=== PATIENT | female | born 1985 | race African-American/Black ===

== ENCOUNTER 2017-02-24 09:52 | Emergency (ER) | payer OTHER ==
[2017-02-24] MEDS ORDERED: TOPROL XL (09:58)
[2017-02-24 10:46] LABS: BASOPHIL% 0.5 % (0-2.5); EOSINOPHIL# 0.1 X10e3 (0-0.7); EOSINOPHIL% 0.7 % (0.0-7.0); HEMATOCRIT 41.4 % (35.0-45.0); HEMOGLOBIN 14.3 gm/dL (12.0-16.0); LYMPHOCYTE# 1.5 X10e3 (1.0-3.5); LYMPHOCYTE% 14.1 % (17.0-45.0); MEAN CELL VOLUME 88.4 FL (83-96); MEAN CORPUSCULAR HEMOGLOBIN 30.6 PG (28-34); MEAN CORPUSCULAR HGB CONC 34.6 g/dL (30-36); MEAN PLATELET VOLUME 8.9 FL (6.5-11.5); MONOCYTE# 0.8 X10e3 (0-1.0); MONOCYTE% 7.7 % (3.0-12.0); NEUTROPHIL# 8.2 X10e3 (1.5-7.1); PLATELET COUNT 166 X10e3 (140-420); RED BLOOD COUNT 4.68 X10e (3.90-5.30); RED CELL DISTRIBUTION WIDTH 13.7 % (11.0-15.5); WHITE BLOOD COUNT 10.7 X10e3 (4.0-10.5)
[2017-02-24 10:52] LABS: DIFF IND NO
[2017-02-24 11:05] LABS: BUN/CREATININE RATIO 8.18; CALCIUM SERUM 8.6 mg/dL (8.4-10.2); CREATININE SERUM 1.1 mg/dL (0.6-1.4)
== END 2017-02-24 12:08 | disposition home or self-care (01) ==
LOC: SED 09:52
PROVIDERS: Emergency Medicine
DX: J02.0 Streptococcal pharyngitis (principal)
CPT/HCPCS: 36415; 80048; 84703; 85025; 87880; 96361; 96372; 96374; 96375; 99283; J0561; J1885; J2930

== ENCOUNTER 2017-03-25 20:27 | Emergency (ER) | payer OTHER ==
[~2017-03-25] VITALS: Ht 170.2 cm; Wt 82.5 kg
--- NOTE | ~2017-03-25 | CT2 ---
[facility] A Service [facility] RADIOLOGY TEXT RESULTS PATIENT: MÓNICA METCALF LOCATION: SED : [birth year] UNIT #: [id number] AGE: [address]: Nathaniel Figueroa MD SEX: F ORDER DR: [id number] [address] [address] [id number] E MR#: [id number] Acc #: [id number] NAME: MÓNICA METCALF : 1985 SEX: F STUDY DATE/TIME: 03/25/2017 22:28 UNIT: SED ROOM: STUDY DESCRIPTION: CT Abd and Pelv W Cont Attending Physician: Nathaniel Figueroa M.D. Ordering Physician: Nathaniel Figueroa M.D. Primary Care Physician: Monica Hurley A.P.R.N. MEDICAL IMAGING REPORT This report is preliminary unless electronic signature is present. EXAM CT abdomen and pelvis with contrast date 03/25/2017 HISTORY Generalized abdominal pain radiating to lower back. Generalized weakness. Symptoms have been present for a couple days. Hypertension. COMPARISON None. PROCEDURE 5 mm axial images from the lung bases to lesser trochanters after intravenous contrast administration. Enteric contrast was not administered. Sagittal and coronal reformatted images were obtained. This CT exam was performed with one or more of the following radiation dose reduction techniques: automatic exposure control, adjustment of mA and/or kV according to patient size, and iterative reconstruction. FINDINGS Abdomen findings: Lung bases are free of consolidation. The liver, gallbladder, spleen, pancreas, adrenals and kidneys are normal. The second through fourth duodenal segment appear to have generalized wall thickening and mucosal hyperenhancement, suggesting the possibility of active duodenitis. There is no evidence of high-grade obstruction. No free air or abscess or ulceration defect is identified. No evidence of high-grade bowel obstruction. There is a tiny umbilical hernia containing only fat. Appendix is normal. Pelvis findings: There is trace pelvic free fluid. The urinary bladder, uterus and rectum are within normal limits. [facility] A Service [facility] RADIOLOGY TEXT RESULTS PATIENT: MÓNICA METCALF LOCATION[place] [facility] [place] [birth year] UNIT #: [id number] AGE: [address]: Nathaniel Figueroa MD SEX: F ORDER DR: No acute osseous abnormalities identified. IMPRESSION 1. Findings suggestive of inflammation the second through fourth duodenal segments. Correlate for duodenitis type symptoms. 2. Trace pelvic free fluid is nonspecific, may be physiologic. 3. The appendix is normal. 4. Remainder of examination is within normal limits. Dictated by... Joyce Del Rio M.D. THIS IS AN ELECTRONICALLY VERIFIED REPORT Joyce Del Rio M.D. at 03/26/2017 9:59 PM NIKOLAY/stephen TD: 03/26/2017 09:48 JOB #: [id number] MEDICAL IMAGING REPORT Page 1 of 1
[~2017-03-25 20:27] MED LIST: TOPROL XL
[2017-03-25] MEDS ORDERED: TOPROL XL50 MG PO (20:36)
[2017-03-25 21:03] LABS: URINE SOURCE CLEAN CATCH
[2017-03-25 21:05] LABS: URINE APPEARANCE CLEAR; URINE BILIRUBIN NEG (NEG); URINE BLOOD NEG (NEG); URINE COLOR YELLOW; URINE GLUCOSE NEG (NORM); URINE KETONE NEG (NEG); URINE LEUKOCYTE ESTERASE NEG (NEG); URINE NITRATE NEG (NEG); URINE PROTEIN TRACE (NEG)
[2017-03-25 21:06] LABS: BASOPHIL# 0.1 X10e3 (0-0.3); BASOPHIL% 0.8 % (0-2.5); DIFF IND NO; EOSINOPHIL# 0.1 X10e3 (0-0.7); EOSINOPHIL% 1.5 % (0.0-7.0); HEMATOCRIT 41.7 % (35.0-45.0); HEMOGLOBIN 14.7 gm/dL (12.0-16.0); LYMPHOCYTE# 1.7 X10e3 (1.0-3.5); MEAN CELL VOLUME 86.6 FL (83-96); MEAN CORPUSCULAR HEMOGLOBIN 30.4 PG (28-34); MEAN CORPUSCULAR HGB CONC 35.1 g/dL (30-36); MEAN PLATELET VOLUME 8.2 FL (6.5-11.5); MONOCYTE# 0.5 X10e3 (0-1.0); MONOCYTE% 6.2 % (3.0-12.0); NEUTROPHIL# 5.4 X10e3 (1.5-7.1); NEUTROPHIL% 69.5 % (40-75); PLATELET COUNT 247 X10e3 (140-420); RED BLOOD COUNT 4.82 X10e (3.90-5.30); RED CELL DISTRIBUTION WIDTH 14.1 % (11.0-15.5); WHITE BLOOD COUNT 7.8 X10e3 (4.0-10.5)
[2017-03-25 21:10] LABS: CULTURE INDICATED? NO; MICRO INDICATED? YES; URINE BACTERIA NEG (NEG); URINE RBC 0-2 /[HPF] (0-2)
[2017-03-25 21:11] LABS: URINE MUCUS PRESENT; URINE SQUAMOUS EPITHELIAL CELL OCCAS /[HPF]
[2017-03-25 21:24] LABS: ALBUMIN SERUM 4.4 g/dL (3.5-5.0); BILIRUBIN, DIRECT 0.2 mg/dL (0.0-0.2); BILIRUBIN,INDIRECT 1.2 mg/dL (0.0-0.9); BILIRUBIN,TOTAL 1.4 mg/dL (0.2-2.0); BUN/CREATININE RATIO 10.83; CALCIUM SERUM 9.2 mg/dL (8.4-10.2); CREATININE SERUM 1.2 mg/dL (0.6-1.4); GLOM FILT RATE Estimated 69.3 mL/min (>60); PROTEIN TOTAL SERUM 8.1 g/dL (6.0-8.3)
[2017-03-25 23:45] LABS: AMPHETAMINE NEG (NEG); BARBITURATES NEG (NEG); BENZODIAZEPINES NEG (NEG); COCAINE POS (NEG); MARIJUANA NEG (NEG); OPIATES NEG (NEG); TRICYCLIC ANTIDEPRESSANTS NEG (NEG); U METHADONE NEG (NEG)
== END 2017-03-26 00:06 | disposition home or self-care (01) ==
LOC: SED 20:27
PROVIDERS: Emergency Medicine
DX: K29.80 Duodenitis without bleeding (principal); E87.6 Hypokalemia; I10 Essential (primary) hypertension; Z98.890 Other specified postprocedural states
CPT/HCPCS: 36415; 74177; 80048; 80076; 80307; 81003; 82150; 83690; 84703; 85025; 96374; 96375; 96376; 99284; J1170; J1885; J2405; Q9967